=== PATIENT | female | born 1935 | race Caucasian/White ===

== ENCOUNTER 2018-01-22 11:57 | Outpatient (CLI) | payer MEDICARE, BC ==
--- NOTE | 2018-01-22 13:14 | XRAY Report ---
Procedure Date: 01/22/2018 Accession Number: [id number] / [id number] Procedure: XRS - Cervical Spine 2 View CPT Code: FULL RESULT: EXAM: Cervical Spine 2 View DATE: 01/22/2018 12:21 PM CLINICAL HISTORY: NECK AND BACK PAIN COMPARISON: None. TECHNIQUE: 3 views. FINDINGS: Alignment: Normal. No spondylolisthesis or scoliosis. Bones: The cervical vertebral bodies and posterior elements are well visualized from the skull base through C7-T1. No fractures or bone lesions. Disks: Moderate degenerative disc disease. Facets: Mild facet arthropathy. Soft Tissues: Normal. No prevertebral soft tissue swelling. The visualized lung apices are clear. IMPRESSION: Degenerative changes. No evidence of fracture. [facility]
--- NOTE | 2018-01-22 13:15 | XRAY Report ---
Procedure Date: 01/22/2018 Accession Number: [id number] / [id number] Procedure: XRS - Thoracic Spine 2 View CPT Code: FULL RESULT: EXAM: Thoracic Spine 2 View DATE: 01/22/2018 12:20 PM CLINICAL HISTORY: NECK AND BACK PAIN, HEADACHE COMPARISON: None. TECHNIQUE: 2 views. FINDINGS: Alignment: Normal. No spondylolisthesis or scoliosis. Bones: No fractures or bone lesions. Disks: Mild degenerative disc disease. Soft Tissues: Normal. The visualized lungs and cardiomediastinal silhouette are normal. IMPRESSION: Mild degenerative changes. [facility]
== END 2018-01-22 11:58 | disposition home or self-care (01) ==
LOC: DI.S 11:57
PROVIDERS: ATTEND Nurse Practitioner Family
DX: M50.30 Other cervical disc degeneration, unspecified cervical region (principal); M51.34 Other intervertebral disc degeneration, thoracic region; R51 Headache
CPT/HCPCS: 72040; 72070